=== PATIENT | female | born 1965 | race Caucasian/White ===

== ENCOUNTER → 2016-10-31 | Outpatient (CLI) | payer BC ==
[2015-09-04 19:24] VITALS: BP 121/77
--- NOTE | 2016-10-31 16:56 | KCIC ---
Bilateral digital screening mammograms: Reason for examination: Routine screening. No previous exams for comparison. New baseline. The skin and nipples show no abnormalities. No abnormal axillary lymph nodes are seen. The breast parenchyma is heterogeneously dense. (Breast density: Category C.) There are no dominant masses, suspicious calcifications or architectural distortion. Impression: No evidence of malignancy. Recommend routine screening. Your patient's mammogram demonstrates that she has dense breast tissue (breast density category C or D), which could hide abnormalities, and if she has other risk factors for breast cancer that have been identified, she might benefit from supplemental screening tests that may be suggested by you as her ordering physician. Dense breast tissue, in and of itself, is a relatively common condition. Therefore, this information is not provided to cause undue concern, but rather to raise your awareness and to promote discussion with your patient regarding the presence of other risk factors, in addition to dense breast tissue. Your patient's mammography results will be sent to her. BI-RAD Category 1: Negative. "Our facility is accredited by the [employer] Mammography [employer]." This patient's information has been entered into a reminder system for the patient to be notified with the results of her examination and a target date for the next mammogram. Electronically signed by: Denita Lopez MD (10/31/2016 4:53 PM)
== END | disposition home or self-care (01) ==
LOC: KCIC MAMMO 10:35
PROVIDERS: ATTEND Nurse Practitioner
DX: Z12.31 Encounter for screening mammogram for malignant neoplasm of breast (principal)
CPT/HCPCS: G0202; 77067

== ENCOUNTER → 2018-07-09 | Outpatient (CLI) | payer BC ==
[2015-09-04 19:24] VITALS: BP 121/77
[~2018-07-09] MED LIST: ALPR0.25 PO; FING0.5C3 PO; GADOBUTROL 10 MMOL/10 ML VIAL IV ONE; LEXAPRO20 MG PO; RABE20TA18 PO; RIZA10TA PO; TIZA4TAB PO
--- NOTE | 2018-07-09 11:23 | KCIC ---
MRI of the Brain without and with Contrast 07/09/2018 Clinical History: Multiple sclerosis. Migraine headaches. Tremors. Technique: Unenhanced T1-weighted and FLAIR sagittal and axial and T2-weighted, gradient echo and diffusion-weighted axial images of the brain were obtained. After the intravenous administration of 10 cc of Gadavist, enhanced T1-weighted axial and coronal images of the brain were obtained. Findings: No previous imaging studies are available for comparison. The ventricles and sulci are within normal limits in size and configuration. Patchy, confluent and multiple focal areas of abnormally increased signal intensity are seen within the periventricular, deep and subcortical white matter of both cerebral hemispheres, particularly involving both frontal lobes, on the FLAIR and T2-weighted images. These measure 2 mm to 8 mm in size. Their MRI appearance is nonspecific but would be consistent with the history of multiple sclerosis. No area of abnormal contrast enhancement is seen. No acute parenchymal abnormality is noted. The extra-axial fluid collection is seen. There is no MRI evidence of acute ischemia/infarction. Mild mucosal thickening in seen scattered throughout the paranasal sinuses. There are small bilateral mastoid effusions. Normal flow voids are seen within the major vascular structures surrounding the brain parenchyma. IMPRESSION: Areas of abnormal signal intensity are seen within the white matter of both cerebral hemispheres which have a nonspecific MRI appearance but would be consistent with the patient's history of multiple sclerosis. No area of abnormal contrast enhancement is seen suggest evidence of active demyelination. No acute parenchymal abnormality is noted. Electronically signed by: Jadiel Kramer MD (07/09/2018 11:20 AM) [id number]
== END | disposition home or self-care (01) ==
LOC: KCIC MRI 08:52
PROVIDERS: ATTEND Psychiatry & Neurology Neurology with Special Qualifications in Child Neurology
DX: G35 Multiple sclerosis (principal); G43.909 Migraine, unspecified, not intractable, without status migrainosus; H74.8X3 Other specified disorders of middle ear and mastoid, bilateral; R90.82 White matter disease, unspecified
CPT/HCPCS: 70553; A9585

== ENCOUNTER → 2019-10-26 | Outpatient (CLI) | payer BC ==
[2015-09-04 19:24] VITALS: BP 121/77
[~2019-10-26] MED LIST changes: -GADOBUTROL 10 MMOL/10 ML VIAL IV ONE; -TIZA4TAB PO; +TIZA4TAB2 PO
--- NOTE | 2019-10-26 16:33 | KCIC ---
Bilateral digital screening mammograms: Reason for examination: Routine screening. Comparison is made to previous study dated 10/31/2016. Interpretation was made with the benefit of CAD. The skin and nipples show no abnormalities. No abnormal axillary lymph nodes are seen. The breast parenchyma is extremely dense. (Breast density: Category D.) There are no dominant masses, suspicious calcifications or architectural distortion. Benign-appearing calcifications are present. Impression: No evidence of malignancy. Recommend routine screening. Your patient's mammogram demonstrates that she has dense breast tissue (breast density category C or D), which could hide abnormalities, and if she has other risk factors for breast cancer that have been identified, she might benefit from supplemental screening tests that may be suggested by you as her ordering physician. Dense breast tissue, in and of itself, is a relatively common condition. Therefore, this information is not provided to cause undue concern, but rather to raise your awareness and to promote discussion with your patient regarding the presence of other risk factors, in addition to dense breast tissue. Your patient's mammography results will be sent to her. BI-RAD Category 2: Benign. "Our facility is accredited by the [employer] Mammography [employer]." This patient's information has been entered into a reminder system for the patient to be notified with the results of her examination and a target date for the next mammogram. Electronically signed by: Denita Lopez MD (10/26/2019 4:31 PM) [id number]
== END ==
LOC: KCIC MAMMO 09:59
PROVIDERS: ATTEND Internal Medicine
DX: Z12.31 Encounter for screening mammogram for malignant neoplasm of breast (principal)
CPT/HCPCS: 77067

== ENCOUNTER 2021-06-21 08:20 | Day surgery (SDC) | payer BC ==
[~2021-06-21] VITALS: Ht 162.6 cm; Wt 106.8 kg
[~2021-06-21 08:20] MED LIST changes: +HYDROmorphone 2 MG/ML INJ. IVP PRN; +IV RINGERS,LACTATED 1000ML 1,000 ML IV SCH; +MORPHINE SULFATE 2 MG/ML INJ. IVP PRN; +PROCHLORPERAZINE 10 MG/2 ML VIAL. IVP PRN; +TIZA-75 PO; -TIZA4TAB2 PO; +fentaNYL PF VIAL 100 MCG/2 ML VIAL IVP PRN
[2021-06-21] MEDS ORDERED: fentaNYL PF VIAL 100 MCG/2 ML VIAL ONE ×2 (08:28→11:18)
[2021-06-21] MEDS ORDERED: ONDANSETRON PF 4 MG/2 ML VIAL. ONE (08:28)
[2021-06-21] MEDS ORDERED: DEXAMETHASONE SOD PHOS 4 MG/ML VIAL ONE (08:28)
[2021-06-21] MEDS ORDERED: LIDOCAINE 2% PF 5 ML VIAL. ONE (08:29)
[2021-06-21 08:49] VITALS: BP 121/77
[2021-06-21] MEDS ORDERED: BUPIVACAINE MPF 0.25% 30 ML VIAL. ONE (09:24)
[2021-06-21] MEDS ORDERED: PROPOFOL 10 MG/ML (20ML) VIAL. IV ONE (10:07)
[2021-06-21] MEDS ORDERED: GLYCOPYRROLATE 1 MG/5 ML VIAL. ONE (10:12)
--- NOTE | 2021-06-21 10:39 | PDOC4 ---
OPERATIVE NOTE Date: Date: Jun 21, 2021 Pre-Op Diagnosis: CTS left cubital tunnel left Post-Op Diagnosis: Same Procedure Performed: Carpal tunnel release left cubital tunnel ulnar nerve transposition left Surgeon: Yola Anesthesia Type: General Blood Loss: 5 cc Specimans Obtained: None Findings: See dictation Complications: None ZHENG KERR Jr. DO Jun 21, 2021 10:39
[2021-06-21] MEDS ORDERED: HYDR-2761 PO (10:45)
--- NOTE | 2021-06-21 10:47 | DISCH ---
DISCHARGE INSTRUCTIONS Condition on Discharge Condition on Discharge: Stable Activity After Discharge Activity Instructions for Disc: Avoid exertion Driving Instructions after Dis: No driving for 2 weeks Wound Incision Care Wound/Incision Care: Ice to area for comfort, Do not change dressing Follow-Up Follow up with: 10 to 14 days ZHENG KERR Jr. DO Jun 21, 2021 10:47
--- NOTE | 2021-06-21 11:05 | OP ---
DATE OF SURGERY: 06/21/2021 PREOPERATIVE DIAGNOSIS: Carpal tunnel syndrome and cubital tunnel syndrome, chronic left. POSTOPERATIVE DIAGNOSIS: Carpal tunnel syndrome and cubital tunnel syndrome, chronic left. PROCEDURE: Carpal tunnel release, left and ulnar nerve transposition, left. SURGEON: Justin Aceves Jr, DO BARREL LEVELER: Pradeep Bloom. ANESTHESIA: General. COMPLICATIONS: None. ESTIMATED BLOOD LOSS: 5 mL. DESCRIPTION OF PROCEDURE: The patient was taken to the operative suite, given a general anesthetic. Left upper extremity was then prepped and draped in a sterile fashion. Incision was made through skin and subcutaneous tissues directly over the area of the transverse carpal ligament in line with the radial border of the fourth digit. This was carefully taken through the palmar fascia to identify the thenar musculature, which was attached to this area. Minimal amount of that was removed. This was then released in its entirety. The median nerve underneath was noted to be completely intact and decompressed at this point. This wound was then thoroughly irrigated and reapproximated in an interrupted fashion using a 3-0 nylon. Then, incision was made directly over the area of the path of the ulnar nerve. This was taken through skin and subcutaneous tissues down to the level of the medial epicondyle just posterior to this area. This tissue was then subsequently released proximal to the medial epicondyle over the ulnar nerve and distally as well. This adequately decompressed the ulnar nerve. Portion of the fascia of the flexor musculature was then left attached to the medial epicondyle and distally, this was taken in a fashion to be able to make this a large flap. The ulnar nerve was then anteriorly transposed and this fascial tissue was then reapproximated to subcutaneous tissues on the anterior flap of the incision region. This was then in good position with flexion and extension of the elbow and was completely decompressed. This was then thoroughly irrigated and the wounds deeper reapproximated superficial tissues and skin was reapproximated. Sterile dressing was applied. The patient was placed in a posterior splint. The patient was then taken from the operative bed to the postoperative bed, taken to the PACU in stable condition. JAUN DR: Charlie TID: [id number]
[2021-06-21] MEDS: fentaNYL PF VIAL 100 MCG/2 ML VIAL IVP PRN ×2 (11:22→11:40)
[2021-06-21 11:48] VITALS: BP 143/97
[2021-06-21] MEDS ORDERED: HYDROcodone/APAP 5/325MG 1 TAB TABLET ONE (11:54)
[2021-06-21] MEDS ORDERED: HYDROcodone/APAP 5/325MG 1 TAB TABLET PO ONE (12:00)
== END 2021-06-21 12:28 | disposition home or self-care (01) ==
LOC: SURG 08:20
PROVIDERS: ATTEND Orthopaedic Surgery
DX: G56.02 Carpal tunnel syndrome, left upper limb (principal); G56.22 Lesion of ulnar nerve, left upper limb; K21.9 Gastro-esophageal reflux disease without esophagitis; F41.9 Anxiety disorder, unspecified; Z87.891 Personal history of nicotine dependence; Z90.710 Acquired absence of both cervix and uterus; Z98.890 Other specified postprocedural states; Z79.899 Other long term (current) drug therapy; Z88.8 Allergy status to other drugs, medicaments and biological substances
CPT/HCPCS: 64718; 64721; A4364; A4930; A6402; A6449; A6450; J0690; J1100; J2405; J2704; J3010; J3490; A4452; A4657; A6452

== ENCOUNTER → 2021-07-01 | Outpatient (CLI) | payer BC ==
[2021-06-21 11:48] VITALS: BP 143/97
[~2021-07-01] MED LIST changes: +HYDR-2761 PO; -HYDROmorphone 2 MG/ML INJ. IVP PRN; -IV RINGERS,LACTATED 1000ML 1,000 ML IV SCH; -MORPHINE SULFATE 2 MG/ML INJ. IVP PRN; -PROCHLORPERAZINE 10 MG/2 ML VIAL. IVP PRN; -fentaNYL PF VIAL 100 MCG/2 ML VIAL IVP PRN
--- NOTE | 2021-07-01 10:56 | KCIC ---
Bilateral digital screening mammograms: Reason for examination: Routine screening. Comparison is made to previous studies dated 10/26/2019 and 10/31/2016. Interpretation was made with the benefit of CAD. The skin and nipples show no abnormalities. No abnormal axillary lymph nodes are seen. The breast par enchyma is extremely dense. (Breast density: Category D.) There are no dominant masses, suspicious ca lcifications or architectural distortion. Punctate benign-appearing calcifications are again seen. Impression: No evidence of malignancy. Recommend routine screening. Your patient's mammogram demonstrates that she has dense breast tissue (breast density category C or D), which could hide abnormalities, and if she has other risk factors for breast cancer that have bee n identified, she might benefit from supplemental screening tests that may be suggested by you as her ordering physician. Dense breast tissue, in and of itself, is a relatively common condition. Therefo re, this information is not provided to cause undue concern, but rather to raise your awareness and t o promote discussion with your patient regarding the presence of other risk factors, in addition to d ense breast tissue. Your patient's mammography results will be sent to her. BI-RAD Category 2: Benign. "Our facility is accredited by the [employer] Mammography Program." This patient's information has been entered into a reminder system for the patient to be notified wit h the results of her examination and a target date for the next mammogram. Electronically signed by: Denita Lopez MD (07/01/2021 10:54 AM) [id number]
== END ==
LOC: KCIC MAMMO 07:49
PROVIDERS: ATTEND Internal Medicine
DX: Z12.31 Encounter for screening mammogram for malignant neoplasm of breast (principal)
CPT/HCPCS: 77067

== ENCOUNTER 2021-08-16 06:08 | Day surgery (SDC) | payer BC ==
[~2021-08-16] VITALS: Ht 162.6 cm; Wt 106.8 kg
[~2021-08-16 06:08] MED LIST changes: +HYDROmorphone 2 MG/ML INJ. IVP PRN; +IV RINGERS,LACTATED 1000ML 1,000 ML IV SCH; +MORPHINE SULFATE 2 MG/ML INJ. IVP PRN; +PROCHLORPERAZINE 10 MG/2 ML VIAL. IVP PRN; +fentaNYL PF VIAL 100 MCG/2 ML VIAL IVP PRN
[2021-08-16 06:29] VITALS: BP 133/70
[2021-08-16] MEDS ORDERED: DEXAMETHASONE SOD PHOS 4 MG/ML VIAL ONE (06:45)
[2021-08-16] MEDS ORDERED: fentaNYL PF VIAL 100 MCG/2 ML VIAL ONE ×2 (06:45→08:37)
[2021-08-16] MEDS ORDERED: ONDANSETRON PF 4 MG/2 ML VIAL. ONE (06:45)
[2021-08-16] MEDS ORDERED: PROPOFOL 10 MG/ML (20ML) VIAL. IV ONE (06:45)
[2021-08-16] MEDS ORDERED: SUCCINYLCHOLINE 200 MG/10 ML VIAL. ONE (06:46)
[2021-08-16] MEDS ORDERED: BUPIVACAINE MPF 0.25% 30 ML VIAL. ONE ×2 (07:00→07:15)
--- NOTE | 2021-08-16 08:07 | PDOC4 ---
OPERATIVE NOTE Date: Date: Aug 16, 2021 Pre-Op Diagnosis: Chronic carpal tunnel syndrome right Cubital tunnel syndrome right Post-Op Diagnosis: Same Procedure Performed: Right carpal tunnel release Right ulnar nerve transposition and decompression Surgeon: Yola Anesthesia Type: General Blood Loss: 10 cc Specimans Obtained: None Findings: See dictation ZHENG KERR Jr. DO Aug 16, 2021 08:07
[2021-08-16] MEDS ORDERED: HYDR-2761 PO (08:10)
--- NOTE | 2021-08-16 08:14 | DISCH ---
DISCHARGE INSTRUCTIONS Condition on Discharge Condition on Discharge: Stable Activity After Discharge Activity Instructions for Disc: Avoid exertion Lifting Instructions after Dis: No pulling or pushing Driving Instructions after Dis: No driving for 2 weeks Wound Incision Care Wound/Incision Care: Ice to area for comfort, Keep wound elevated, Do not attila nge dressing Follow-Up Follow up with: 10 to 14 days ZHENG Smith Jr. DO Aug 16, 2021 08:14
[2021-08-16] MEDS ORDERED: HYDROcodone/APAP 5/325MG 1 TAB TABLET PO ONE (08:30)
[2021-08-16 09:10] VITALS: BP 125/77
--- NOTE | 2021-08-16 09:28 | OP ---
DATE OF SURGERY: 08/16/2021 PREOPERATIVE DIAGNOSES: Carpal tunnel syndrome, right and cubital tunnel, right. POSTOPERATIVE DIAGNOSES: Carpal tunnel syndrome, right and cubital tunnel, right. PROCEDURE: Right carpal tunnel release and ulnar nerve transposition. SURGEON: DO LUIZ Cameron Jr ASSISTANT: Samuel ANESTHESIA: General. COMPLICATIONS: None. ESTIMATED BLOOD LOSS: 10 mL. DESCRIPTION OF PROCEDURE: The patient was taken to the operative suite, given a general anesthetic. Right upper extremity was then prepped and draped in a sterile fashion. After exsanguination, tourniquet was inflated on the upper arm. Incision is initially through skin and subcutaneous tissues over the area of the transverse carpal ligament in line with the radial border of the fourth digit. This was carefully taken through the palmar fascia to identify the transverse carpal ligament. This was incised longitudinally to release the nerve, which was noted to be completely intact. This was fully released. Therefore, this was thoroughly irrigated. This was reapproximated in an interrupted fashion using 3-0 nylon. Incision was then made along the area of the medial epicondyle centered along this area. The incision was proximal and distal to this area. This is over the path of the ulnar nerve and this was carefully dissected down through skin, subcutaneous tissues, deeper tissues overlying the area of the ulnar nerve. The ulnar nerve was then identified and released distally and proximally for 6 cm proximally and about 4 cm distally. After this was done, the nerve was noted to be completely intact. This was able to be transposed without any significant pressure on the nerve. Therefore, a flap of tissue was used, which was the fascia overlying the flexor musculature. This was maintained along its attachment to the medial epicondyle and the ulnar nerve was transposed anterior to this. This tissue was then sutured to the underlying subcutaneous tissue of the anterior flap. This allowed us to go through range of motion of the elbow without any signs of subluxation or issues or problems at all at this point. This was also then thoroughly irrigated. The deep tissues reapproximated superficial tissues and skin was reapproximated. Sterile dressing was applied. A posterior splint was then applied. The patient was then taken from the operative bed to the postoperative bed, taken to the PACU in stable condition. ESTER/TIERRA/KALEIGH DR: Charlie TID: [id number]
== END 2021-08-16 09:31 | disposition home or self-care (01) ==
LOC: SURG 06:08
PROVIDERS: ATTEND Orthopaedic Surgery
DX: G56.01 Carpal tunnel syndrome, right upper limb (principal); G56.21 Lesion of ulnar nerve, right upper limb; K21.9 Gastro-esophageal reflux disease without esophagitis; F41.9 Anxiety disorder, unspecified; Z87.891 Personal history of nicotine dependence; Z90.710 Acquired absence of both cervix and uterus; Z98.890 Other specified postprocedural states; Z72.89 Other problems related to lifestyle; Z88.8 Allergy status to other drugs, medicaments and biological substances
CPT/HCPCS: 64718; 64721; A4930; A6402; J0330; J0690; J1100; J2405; J2704; J3010; J3490; A4657; A6452

== ENCOUNTER → 2021-09-27 | Outpatient (CLI) | payer BC ==
[~2021-09-27] MED LIST changes: +GADOTERATE 5 MMOL/10ML VIAL. IVP ONE; -HYDROmorphone 2 MG/ML INJ. IVP PRN; -IV RINGERS,LACTATED 1000ML 1,000 ML IV SCH; -MORPHINE SULFATE 2 MG/ML INJ. IVP PRN; -PROCHLORPERAZINE 10 MG/2 ML VIAL. IVP PRN; -fentaNYL PF VIAL 100 MCG/2 ML VIAL IVP PRN
--- NOTE | 2021-09-27 13:29 | KCIC ---
EXAM: Brain MRI with and without contrast. HISTORY: Migraines. Multiple sclerosis TECHNIQUE: Multiplanar, multisequence magnetic resonance imaging of the brain was performed prior to and following the administration of intravenous contrast. COMPARISON: 07/09/2018 FINDINGS: There is no restricted diffusion to suggest acute or subacute infarction. There is no mass effect or midline shift. There is no stenosis or focal defect to suggest hemorrhage. There are multiple scattered focal areas of T2/FLAIR hyperintensity within the cerebral white matter and jose juan. There has been minimal interval increase in the size of a few lesions compared to the prior exam. The orbits are unremarkable. There is paranasal sinus mucosal thickening and there are multiple left maxillary sinus mucous retention cyst. The mastoid air cells are unremarkable. There are normal flow voids within the cerebral vessels. There is no suspicious calvarial lesion. There is no suspicious en hancing lesion. IMPRESSION: 1. Multiple scattered focal areas of signal change within the cerebral white matter, a nonspecific fi nding. The distribution and configuration of several lesions favors changes due to the reported histo ry of demyelinating disease. However, there may be superimposed changes due to chronic migraine heada ches and chronic small vessel disease. These are minimally increased in size compared to the prior ex am. There is no evidence of active demyelination. 2. No acute intracranial finding. Electronically signed by: Ca Purcell MD (09/27/2021 1:27 PM) [facility]
== END ==
LOC: KCIC MRI 10:47
PROVIDERS: ATTEND Psychiatry & Neurology Neurology with Special Qualifications in Child Neurology
DX: R90.82 White matter disease, unspecified (principal); G35 Multiple sclerosis; G43.009 Migraine without aura, not intractable, without status migrainosus; J34.1 Cyst and mucocele of nose and nasal sinus; J32.0 Chronic maxillary sinusitis
CPT/HCPCS: 70553; A9575